=== PATIENT | female | born 1985 | race Caucasian/White ===

== ENCOUNTER 2020-04-24 02:13 | Outpatient (CLI) | payer BC, SELFPAY ==
--- NOTE | 2020-04-24 13:15 | DI.MAMMO_ITS ---
EXAM: MG MAMMO DIAGNOSTIC BI CLINICAL HISTORY: Left breast tenderness. TECHNIQUE: Craniocaudal and mediolateral oblique Full Field Digital Mammography views with Computer Aided Diagnosis followed by Tomosynthesis. COMPARISON: No exams were available for comparison FINDINGS: Mammography/Tomosynthesis: Masses/Architectural Distortion: No suspicious nodules are seen. Microcalcifictions: No suspicious pleomorphic-type are seen. Skin Thickening/Nipple Retraction: None. IMPRESSION: 1. No evidence of malignancy is noted. 2. Unless there is more urgent need, follow-up screening mammography is recommended, as per [place] [employer] guidelines. 3. The findings were discussed with the patient on the date of the examination. BI-RADS Category 1 - Negative Breast Density - Category C - Heterogeneously dense The mammogram demonstrates the patient's breast tissue is dense. Dense breast tissue is very common a nd is not abnormal but dense breast tissue can make it harder to find cancer on a mammogram. Also, de nse breast tissue may increase their breast cancer risk. This information about the [facility] of [facility] was provided to the patient to raise their awareness. Use this report when you speak wi th the patient about their risks for breast cancer, which includes their family history. At that time , you may recommend for more screening tests (Ultrasound or MRI) as they might be useful based on the ir risk. A negative radiographic report should not delay biopsy if a dominant or clinically suspicious mass is present. Up to ten percent of cancers are not identified on mammography. A negative report may reinforce clinical impression. Adenosis and dense breasts may obscure an underlying neoplasm. False positive reports average 6 to 10%. Patient will receive a letter notifying them of these results.
== END 2020-04-24 02:33 ==
PROVIDERS: Visit Provider Obstetrics & Gynecology
DX: N64.4 Mastodynia (principal)
CPT/HCPCS: 77062; 77066; G0279

== ENCOUNTER 2021-01-30 02:03 | Outpatient (CLI) | payer BC, SELFPAY ==
[2021-01-30 16:26] LABS: Kit/Specimen SENT
[2021-01-30 16:45] LABS: *AMPHETAMINES SCREEN URINE Negative (Negative); *BARBITURATES SCREEN URINE Negative (Negative); *BENZODIAZEPINES SCREEN URINE Negative (Negative); Cannabinoids THC Negative (Negative); Cocaine Screen,Urine Negative (Negative); METHADONE URINE SCREEN Negative (Negative); OPIATES URINE SCREEN Negative (Negative)
[2021-01-30 16:46] LABS: Abs Immature Grans 0.03 10^3/uL (0.0-0.06); Absolute Basophil Count 0.04 10^3/uL (0.0-0.2); Absolute Eosinophil Count 0.14 10^3/uL (0.0-0.7); Absolute Lymphocyte Count 2.44 10^3/uL (1.2-3.4); Absolute Monocyte Count 0.76 10^3/uL (0.1-0.8); Absolute Neutrophil Count 6.85 10^3/uL (1.2-6.7); Basophils % 0.4; Eosinophils % 1.4; HGB 13.2 g/dL (11.2-15.7); Immature Grans % 0.3; Lymphocytes % 23.8; MCH 30.6 pg (27.0-33.0); MCHC 33.8 % (32.0-36.0); MCV 90.5 fL (80-95); MPV 10.9 fL (8.0-11.0); Monocytes % 7.4; Neutrophils % 66.7; Nucleated RBC 0 %; Platelet Count 292 10^3/uL (130-400); RBC 4.31 10^6/uL (3.93-5.22); RDW 12.3 % (11.7-14.6); RDW-SD 40.7 fL; WBC 10.26 10^3/uL (4.4-10.8)
[2021-01-30 16:47] LABS: Tricyclic Antidepressants Negative (Negative)
[2021-01-30 17:31] LABS: TSH (W/Ref FT4) 0.76 uIU/mL (0.36-3.74)
[2021-01-31 16:09] LABS: Chlamydia Result Negative (Negative); GC Result Negative (Negative)
[2021-02-02 11:31] LABS: Syphilis Total Ab w/Reflex Nonreactive (Nonreactive)
[2021-02-03 09:03] LABS: Hepatitis B Surface Ag Negative (Negative)
[2021-02-03 09:38] LABS: Hepatitis C Ab w Rflx HCV PCR Negative (Negative)
[2021-02-03 09:46] LABS: HIV-1/2 Ag & Ab Screen Negative (Negative)
[2021-02-03 10:16] LABS: Varicella IgG Antibody Positive (See Note)
[2021-02-03 10:21] LABS: Rubella IgG Ab (UVM) Positive (See Note)
[2021-02-05 12:28] LABS: Buprenorphine Negative ng/mL (Cutoff: 5.0); Norbuprenorphine Negative ng/mL (Cutoff: 2.5)
[2021-02-05 18:43] LABS: Specimen WB Whole Blood
== END 2021-01-30 02:04 | disposition home or self-care (01) ==
LOC: LBO 02:03
PROVIDERS: PCP Nurse Practitioner Family; Visit Provider Advanced Practice Midwife
DX: Z34.91 Encounter for supervision of normal pregnancy, unspecified, first trimester (principal); Z11.3 Encounter for screening for infections with a predominantly sexual mode of transmission; Z11.4 Encounter for screening for human immunodeficiency virus [HIV]; Z11.59 Encounter for screening for other viral diseases; Z01.84 Encounter for antibody response examination
CPT/HCPCS: 36415; 80307; 81329; 86787; 86803; 86850; 86900; 86901; 87340; 87389; 87491; 87591; 84443; 85025; 86762; 86780; 87086

== ENCOUNTER 2021-02-12 03:06 | Outpatient (CLI) | payer BC, SELFPAY ==
[2021-02-12 09:16] LABS: Glucose,1 Hr (Glucola) 113 mg/dL (80-140)
== END 2021-02-12 03:07 | disposition home or self-care (01) ==
LOC: LBO 03:06
PROVIDERS: PCP Nurse Practitioner Family; Visit Provider Advanced Practice Midwife
DX: Z34.91 Encounter for supervision of normal pregnancy, unspecified, first trimester (principal)
CPT/HCPCS: 36415; 82950

== ENCOUNTER 2021-05-20 03:39 | Outpatient (CLI) | payer BC, SELFPAY ==
[2021-05-20 09:46] LABS: Abs Immature Grans 0.08 10^3/uL (0.0-0.06); Absolute Basophil Count 0.03 10^3/uL (0.0-0.2); Absolute Eosinophil Count 0.09 10^3/uL (0.0-0.7); Absolute Lymphocyte Count 1.31 10^3/uL (1.2-3.4); Absolute Monocyte Count 0.48 10^3/uL (0.1-0.8); Absolute Neutrophil Count 6.38 10^3/uL (1.2-6.7); Basophils % 0.4; Eosinophils % 1.1; HCT 32.4 % (36.0-46.0); HGB 10.2 g/dL (11.2-15.7); Lymphocytes % 15.7; MCH 28.3 pg (27.0-33.0); MCHC 31.5 % (32.0-36.0); MPV 10.2 fL (8.0-11.0); Monocytes % 5.7; Neutrophils % 76.1; Nucleated RBC 0 %; Platelet Count 258 10^3/uL (130-400); RDW 12.4 % (11.7-14.6); RDW-SD 41.1 fL; WBC 8.37 10^3/uL (4.4-10.8)
[2021-05-20 10:02] LABS: Glucose,1 Hr (Glucola) 149 mg/dL (80-140)
== END 2021-05-20 03:40 | disposition home or self-care (01) ==
LOC: LBO 03:39
PROVIDERS: PCP Nurse Practitioner Family; Visit Provider Obstetrics & Gynecology
DX: O09.523 Supervision of elderly multigravida, third trimester (principal); Z3A.28 28 weeks gestation of pregnancy
CPT/HCPCS: 36415; 82950; 85025

== ENCOUNTER 2021-05-21 08:47 | Outpatient (CLI) | payer BC, SELFPAY ==
[2021-05-21 13:24] LABS: Glucose 1 Hour 142 mg/dL
[2021-05-21 15:22] LABS: Glucose 3 Hour 121 mg/dL
== END 2021-05-21 08:48 | disposition home or self-care (01) ==
LOC: LBO 08:51
PROVIDERS: PCP Nurse Practitioner Family; Visit Provider Obstetrics & Gynecology
DX: O99.810 Abnormal glucose complicating pregnancy (principal); Z3A.28 28 weeks gestation of pregnancy
CPT/HCPCS: 36415; 82951

== ENCOUNTER 2021-07-15 16:49 | Outpatient (REF) | payer BC, SELFPAY ==
[2021-07-15 17:56] LABS: *AMPHETAMINES SCREEN URINE Negative (Negative); *BARBITURATES SCREEN URINE Negative (Negative); *BENZODIAZEPINES SCREEN URINE Negative (Negative); Cannabinoids THC Negative (Negative); Cocaine Screen,Urine Negative (Negative); METHADONE URINE SCREEN Negative (Negative); OPIATES URINE SCREEN Negative (Negative)
[2021-07-15 17:57] LABS: Tricyclic Antidepressants Negative (Negative)
== END 2021-07-15 16:50 | disposition home or self-care (01) ==
LOC: NCHCN 16:49
PROVIDERS: PCP Nurse Practitioner Family; Visit Provider Obstetrics & Gynecology
DX: Z34.83 Encounter for supervision of other normal pregnancy, third trimester (principal); Z3A.35 35 weeks gestation of pregnancy
CPT/HCPCS: 80307; 87081

== ENCOUNTER 2021-07-22 02:47 | Outpatient (RCR) | payer BC, SELFPAY ==
[2021-07-17] MEDS: IRON SUCROSE COMPLEX 200 MG in Normal Saline 100 ML 440 MG IVPB (11:20)
[2021-07-17] MEDS: Normal Saline Flush 10 ML SYR IVP (11:21)
[2021-07-22 14:21] LABS: HGB 11.5 g/dL (11.2-15.7)
== END 2021-07-24 23:59 | disposition home or self-care (01) ==
LOC: INF 02:47
PROVIDERS: PCP Nurse Practitioner Family; Visit Provider Obstetrics & Gynecology
DX: D64.9 Anemia, unspecified (principal); O99.013 Anemia complicating pregnancy, third trimester
CPT/HCPCS: 36415; 96365; 85018; J1756

== ENCOUNTER 2021-07-24 02:08 | Inpatient (IN) | payer BC, SELFPAY ==
[2021-07-24] VITALS (13 sets, daily range): BP systolic 92–107; BP diastolic 53–75; PULSE 66–116; RESP 16–18; TEMP 36.7–36.8; O2SAT 97–100; BMI 25.0
--- NOTE | 2021-07-24 03:15 | HPE_ITS ---
Date of service: 07/24/21 Time of Service: 03:25 Assessment and Plan Assessment and plan (1) Anemia affecting : Status: Acute Qualifiers: Trimester: third trimester Qualified Code(s): O99.013 - Anemia complicating , third trimester (2) Declines (vaginal after ) trial: Status: Acute (3) Active labor at term: Status: Acute (4) GBS (group B Streptococcus carrier), +RV culture, currently : Status: Acute OB-HPI Labor/Delivery History of Present Illness Reason for Visit: Ule Out Labor Chief Complaint: Uterine Contractions; Suspected Labor. MOHAN Calculator Estimated Delivery Date Method Current WG Current Estimate 08/08/21 Ultrasound #1 37w 6d Other Estimates 08/15/21 LMP (Uncertain) 36w 6d History of Present Expected Delivery Route/Plan Sched'ed C/S (#3) - FOB/ - Niko JAIMES Specific Issues/Plan 1. AMA; pt desires [place] screening and level 2 sono, genetics and MFM consult @ [facility] at 18-20 wks: Nl result 1b. Known CF screen negative, SMA carrier screen is negative, Normal [place] results 1d. Son Ronald has autism, Dx shortly after receiving childhood vaccination. Pt declines COVID vaccine. 06/06/21. Counseled again. Declines Covid vaccine. 3. Hx GDM x1 and macrosomia x2, early glucola 119 4. Considering TL, at time of repeat c/s. Review of Systems All systems reviewed & are unremarkable except as noted in HPI and below Constitutional Comments: Feels improved energy since iron transfusion approximately week ago Genitourinary Comments: Contractions beginning at 0100 brownish vaginal discharge. No bright red blood no gush of fluid [facility] Medical History (Updated 07/24/21 @ 03:25 by Iris Pena MD) Abscess of Bartholin's gland R sided. I+D 09/20/13. + Staph Aureus. Bartholin's gland abscess (09/23/17) R sided. I&D 09/20/17. Breast tenderness Depression Eczema Elevated glucose level 3hr 2nd trimester GTT elevated. Monitoring CBGs Elevated glucose tolerance test Encounter for supervision of normal , unspecified, second trimester Gastroesophageal reflux disease Glucose intolerance of (07/21/17) 11/2017: 28w Glucola elevated. 3hr GTT fasting 95. Refer to senior net programmer. Fetus > 90% tile on serial u/s 3rd trimester. 01/11/18 EFW 99%tile on OB u/s. Melanocytic nevi of scalp and neck (08/29/14) Migraine with aura acute exacerbation of headache sx in 08/2010 with 2hr episode of confusion and difficulty communicating followed by severe migrane. w/u with MRI showing ? white matter changes but no CVA. Rx with Maxalt and Amitriptyline. 08/24/13 recurrent sx of migrane with aura 11w EGA. Nonspecific abnormal findings on skull or head x-ray or scan 2003 MRA - neg /MRI -T2 image 8x9mm lesion R lateral ventricle. 2009 MRA nl [place]. MRI Nonspecific white matter changes periventricular region. Possible lesion in R maninder ? demylelinating process. -induced glucose intolerance 2nd . Diet controlled. Surgical History (Updated 07/24/21 @ 03:24 by Iris Pena MD) Appendectomy 2011 at [facility] section (03/15/14) 03/15/14 LTCS for arrest of descent. M. 9lb2oz. Apgars 9/10. IOL at 41w. Bertha and [place]. pushed for 3hrs. Stanley 01/20/18 RLTCS Tyrese Kaufman. 9lb1oz. Active labor, declined . Family History Mother No problems noted. Father No problems noted. Sister Fibromyalgia Mental disorder Anxiety depresssion Sister Mental disorder Anxiety, Depression Asthma Brother Asthma Brother No problems noted. Social History Smoking/Tobacco Use Status: Never Smoking risk assessment performed?: Yes Drug use: Never Household members: spouse, children and other Details: H-Niko, sons-Mandeep Angel Number of Children: 2 current occupation: Grade schoolteacher, waitresses for additional income. Niko [id number] Do you feel safe in your relationship?: Yes Female Reproductive History Menstrual control method: pills History History 3 Para 2 Hx # Term Pregnancies 2 Multiple births 0 Hx # Pregnancies 0 Ectopic pregnancies 0 AB induced 0 Hx Number of Living Children 2 AB spontaneous 0 Past Pregnancies Del. Date GA/Weeks # Outcome Route Wgt Sex Labor Lgth Anesthes ia Location Prov Complic 03/15/14 42 No Successful 9 lb 2 oz Male 48 hrs regional [facility] - Dr. Pena 01/20/18 38 No Successful 9 lb 1 oz Male spont l abor, planned repeat C/S once dilated to 3 cm regional [facility] - Dr. Tobin Delivery Date: 03/15/14 IOL for post dates, tried for 2 days, dilated to 9 or so, pushed anyway for 3 hrs, then C/S Carmen Parks Delivery Date: 01/20/18 Planned repeat C/S but went into labor early Carmen Burden Meds Allergies and Home Medications Allergies Allergy/AdvReac Type Severity Reaction Status Date / Time No Known Allergies Allergy Unverified 07/22/21 15:06 Home Medications Medication Instructions Recorded Confirmed Type multivitamin 1 tab PO DAILY 01/16/21 07/24/21 History ferrous sulfate 325 mg (65 mg 325 mg PO BID 180 Days #360 tab 05/20/21 07/24/21 Rx iron) tablet,delayed release Exam Physical Exam Vital signs: Temp Pulse Resp BP Pulse Ox 98.1 F 116 H 16 107/75 99 07/24/21 02:59 07/24/21 03:03 07/24/21 02:59 07/24/21 03:03 07/24/21 02:59 Vital Signs Reviewed: Yes Narrative: Onset of painful regular contractions began at 1:00 this morning. Constitutional Constitutional: mild distress (Reacting with contractions) Detailed Labor and Delivery Exam Dilation: 1 Effacement (%): 90 station: -1 Position: OA Cervix position: mid Consistency: soft Doherty Score: Cervical Points Exam 0 1 2 3 Dilation Closed 1-2cm 3-4 cm 5-6cm Effacement 0-30% 40-50% 60-70% 80% Consistency Firm Medium Soft Station -3 -2 -1,0 +1,+2 Position Posterior Mid Anterior DOHERTY Score(Cervical Ripeness Score): 8 Amniotic Membrane Status: Intact Monitor Mode: External Contraction Frequency(min): 2-3 Contraction Duration(sec): 40 Contraction Intensity: Mild/Moderate Fetus A Heart Rate Baseline: 150 Monitor Accelerations: 15 X 15 Monitor Decelerations: None Variability: Moderate (6-25 BPM) Presentation: Cephalic Categories: Category I Est. Weight: 3800 lb Assessment Note: Membranes intact. heart rate tracing category 1. HEENT Exam HEENT Exam: Not Done Neck Exam Neck Exam: Normal Chest/Brest/Axilla Exam Chest Exam: Not Done Breast Exam Breast Exam: Not Done Respiratory Exam Respiratory Exam: Normal Cardiovascular Exam Cardiovascular Exam: Normal Abdominal Exam Abdominal Exam: Normal Rectal Exam Rectal Exam: Not Done Exam Exam: Normal Extremities Exam Extremities Exam: Normal Back/Spine/Pelvis Exam Back Exam: Normal Pelvis Adequate: Yes Skin Exam Skin Exam: Normal (Multiple 3 mm rounded discolorations on back) Neurological Exam Neurological Exam: Normal Psychiatric Exam Psychiatric Exam: Normal Results Results Group Beta Strep: Positive Blood Type: A+ Rubella Status: Immune Varicella Immunity: Immune Risk Assessment Risk for Shoulder Dystocia Historical/Initial OB: POSITIVE FOR: Previous Macrosomia; NEGATIVE FOR: Pelvic Abnormality, Pre- BMI>30 or Previous Shoulder Dystocia Delivery Plan @ 36wks: planned repeat C/S Risk for Pre-Eclampsia Yes, if one or more: NEGATIVE FOR: Hx Pre-E/Gest HTN, Chronic HTN, Multiple Gestation, Pre-gestational DM, Renal Disease, Systemic Lupus or APA Syndrome Yes, if 2 or more: POSITIVE FOR: Age>= 35 yrs; NEGATIVE FOR: Nulliparity, >10yr btwn pregnancies, BMI>30, ethinicty, Mother/Sister w/ Pre-E or Previous IUGR Risk for Post- Hemorrhage Initial: NEGATIVE FOR: Multiple Gestation, Previous PPH, Known Clotting Deficiency, Grand Multiparity or Anticoagulation Risks Reviewed Risks Reviewed Upon Admission: Yes
[2021-07-24] MEDS: ceFAZolin 2 GM/50 ML BAG IVPB (03:30)
[2021-07-24] MEDS: Sodium Citrate 30 ML CUP PO (03:30)
[2021-07-24] MEDS: Lactated Ringers 1,000 ML 200 ML IV (03:30)
--- NOTE | 2021-07-24 03:32 | W.ANESPRE ---
General Info Date of Service Date Performed: 07/24/21 Height: 5 ft 4 in Weight: 66.224 kg Body Mass Index (BMI): 25.0 Surgical Procedure: Operation Date: 07/24/21 03:30 Proposed Procedures Side Surgeon p Section Not Applicable Iris Pena MD Meds Allergies and Home Medications Allergies Allergy/AdvReac Type Severity Reaction Status Date / Time No Known Allergies Allergy Unverified 07/22/21 15:06 Home Medication Medication Instructions Recorded multivitamin 1 tab PO DAILY 01/16/21 ferrous sulfate 325 mg (65 mg 325 mg PO BID 180 Days #360 tab 05/20/21 iron) tablet,delayed release Current Visit Medications: Current Medications Generic Name Dose Route Start Last Admin Trade Name Freq PRN Reason Stop Dose Admin Citric Acid/Sodium Citrate 30 ml 07/24/21 04:00 07/24/21 03:30 Sodium Citrate 30 Ml Cup PO 30 ml PREOP FRANCO Administration Ringer's Solution 1,000 mls @ 200 mls/hr 07/24/21 03:15 07/24/21 03:30 IV 200 mls/hr INFUSION FRANCO Administration Cefazolin Sodium/Dextrose 2 gm in 50 mls @ 100 mls/hr 07/24/21 03:15 07/24/21 03:30 Ancef Duplex IVPB 100 mls/hr PREOP FRANCO Administration Azithromycin 500 mg/ Sodium 250 mls @ 250 mls/hr 07/24/21 03:15 Chloride IVPB PREOP FRANCO Sodium Chloride 500 mls @ 0 mls/hr 07/24/21 03:12 Saline 500ml Bag IV PRN PRN As Directed IV Miscellaneous Supplies 1 each 07/24/21 03:15 Iv Access IV DIRECTED FRANCO Sodium Chloride 0 ml 07/24/21 03:12 Normal Saline Flush 10 Ml Syr IVP PRN PRN PFSH Active Problems Active Problems: Problem Status Onset Code GBS (group B Streptococcus carrier), +RV culture, currently O99.820 Active labor at term Declines (vaginal after ) trial O34.219 support offered Anemia affecting O99.019 Elevated glucose tolerance test R73.09 Encounter for supervision of normal , unspecified, second trimester Z34.92 Z34.90 Tinea versicolor 01/05/18 B36.0 PTSD (post-traumatic stress disorder) 08/29/14 F43.10 Migraine with aura and without status migrainosus, not intractable 09/30/15 G43.109 Medical History Medical History (Updated 07/24/21 @ 03:25 by Iris Pena MD) Abscess of Bartholin's gland R sided. I+D 09/20/13. + Staph Aureus. Bartholin's gland abscess (09/23/17) R sided. I&D 09/20/17. Breast tenderness Depression Eczema Elevated glucose level 3hr 2nd trimester GTT elevated. Monitoring CBGs Elevated glucose tolerance test Encounter for supervision of normal , unspecified, second trimester Gastroesophageal reflux disease Glucose intolerance of (07/21/17) 11/2017: 28w Glucola elevated. 3hr GTT fasting 95. Refer to brush maker machine. Fetus > 90% tile on serial u/s 3rd trimester. 01/11/18 EFW 99%tile on OB u/s. Melanocytic nevi of scalp and neck (08/29/14) Migraine with aura acute exacerbation of headache sx in 08/2010 with 2hr episode of confusion and difficulty communicating followed by severe migrane. w/u with MRI showing ? white matter changes but no CVA. Rx with Maxalt and Amitriptyline. 08/24/13 recurrent sx of migrane with aura 11w EGA. Nonspecific abnormal findings on skull or head x-ray or scan 2003 MRA - neg /MRI -T2 image 8x9mm lesion R lateral ventricle. 2009 MRA nl [place]. MRI Nonspecific white matter changes periventricular region. Possible lesion in R maninder ? demylelinating process. -induced glucose intolerance 2nd . Diet controlled. Surgical History Surgical History (Updated 07/24/21 @ 03:24 by Iris Pena MD) Appendectomy 2011 at [facility] section (03/15/14) 03/15/14 LTCS for arrest of descent. M. 9lb2oz. Apgars 9/10. IOL at 41w. [place] [employer] [place]. pushed for 3hrs. Stanley 01/20/18 RLTCS Tyrese Kaufman. 9lb1oz. Active labor, declined . Tobacco Smoking/Tobacco Use Status: Never Substance Use Substance use: Never Prental History History 3 Para 2 Hx # Term Pregnancies 2 Multiple births 0 Hx # Pregnancies 0 Ectopic pregnancies 0 AB induced 0 Hx Number of Living Children 2 AB spontaneous 0 Past Pregnancies Del. Date GA/Weeks # Outcome Route Wgt Sex Labor Lgth Anesthesia Location Prov [facility] 03/15/14 42 No Successful 4139.03 g Male 48 hrs regional [facility] Pena 01/20/18 38 No Successful 4110.681 g Male spont labor, planned repeat C/S once dilated to 3 cm regional [facility] Georgi Tobin Delivery Date: 03/15/14 IOL for post dates, tried for 2 days, dilated to 9 or so, pushed anyway for 3 hrs, then C/S Carmen Parks Delivery Date: 01/20/18 Planned repeat C/S but went into labor early Carmen Burden Vital Signs and Lab Results Vital Signs Most Recent Vital Signs in EMR: Most Recent Vital Signs Temp Pulse Resp BP Pulse Ox 36.7 C 116 H 16 107/75 99 07/24/21 02:59 07/24/21 03:03 07/24/21 02:59 07/24/21 03:03 07/24/21 02:59 Lab Results Result Diagrams: 07/24/21 Unknown Blood Type / Crossmatch: No Data to Display Complete Blood Count: Hemoglobin 11.5 g/dL (11.2-15.7) 07/22/21 14:03 07/22/21 Complete Metabolic Panel: No Data to Display Liver Function Panel: No Data to Display Coagulation Panel: No Data to Display Cardiac Panel: No Data to Display Arterial Blood Gas: No Data to Display Venous Blood Gas: No Data to Display Pancreas Panel: No Data to Display Thyroid Panel: No Data to Display Infectious Disease: Coronavirus (COVID-19)(PCR) Pending 07/24/21 03:25 07/24/21 Coronavirus 2019 Source Pending 07/24/21 03:25 07/24/21 Blood Cultures: No Data to Display Toxicology Panel: Urine Amphetamines Screen Negative (Negative) 07/15/21 17:11 07/15/21 Urine Benzodiazepines Screen Negative (Negative) 07/15/21 17:11 07/15/21 Urine Barbiturates Screen Negative (Negative) 07/15/21 17:11 07/15/21 Urine Cocaine Screen Negative (Negative) 07/15/21 17:11 07/15/21 Urine Methadone Screen Negative (Negative) 07/15/21 17:11 07/15/21 Urine Opiates Screen Negative (Negative) 07/15/21 17:11 07/15/21 Ur Tricyclic Antidepressants Screen Negative (Negative) 07/15/21 17:11 07/15/21 Ur Tetrahydrocannabinol (THC) Scrn Negative (Negative) 07/15/21 17:11 07/15/21 Panel: No Data to Display Anesthesia Assessment and Plan Anesthesia History Personal History: No History of Anesthesia Complications Family History: No Family History of Anesthesia Complications Exercise Tolerance Exercise Tolerance: Metabolic Equivalents>4 Cardiac & Pulmonary Exam Cardiac Exam: Normal S1/S2 Heart Sounds Pulmonary Exam: Clear Bilateral Breath Sounds Airway Exam Known Difficult Airway: No Mallampati Class: 1 Mouth Opening: Normal (> 3cm) Thyromental Distance: Greater than 3 cm Neck Range of Motion: Full ROM Neck Circumference: Normal Teeth Condition: Normal Dentition ASA Classification ASA Score: ASA 2 Emergency Case?: Yes NPO Status NPO Status: Full Stomach Status Status: Other Anesthesia Plan Resuscitation Status: Full Code Anesthesia Technique: Spinal Anesthesia Airway Planned: Natural Airway Pain Management: Intrathecal Analgesia Monitors Used: Standard Monitors Preoperative Comments:: 36 yo female for in labor for repeat c section, has had 2 previous sections.
[2021-07-24 03:34] LABS: Source Nasal/Nares
[2021-07-24 03:39] LABS: HCT 35.3 % (36.0-46.0); HGB 11.3 g/dL (11.2-15.7); MCH 27.4 pg (27.0-33.0); MCV 85.7 fL (80-95); MPV 11.4 fL (8.0-11.0); Platelet Count 195 10^3/uL (130-400); RBC 4.12 10^6/uL (3.93-5.22); WBC 9.29 10^3/uL (4.4-10.8)
[2021-07-24] MEDS: AZITHROMYCIN 500 MG in Normal Saline 250 ML 250 MG IVPB (04:07)
[2021-07-24 04:26] LABS: COVID-19 PCR Negative (Negative)
--- NOTE | 2021-07-24 04:43 | FALL_PTH ---
PATIENT: Ana Bond LOC: OBS U#:[id number] AGE/SX: 36/F ROOM: OBS.305 RE07/24/[address]: Iris Pena : 1985 BED: A DIS: 07/27/2021 SPEC #: [id number] RECD: 07/24/21 12:46 STATUS: TERRI REQ #: [id number] NOMAN: 07/24/21 04:[address]: Iris Pena DEPT: Surgical Specimen RECD BY: Nury Villanueva ENTERED: 07/24/21 12:47 SP TYPE: Fall OTHR DR: Medina Orantes Tissues: 1 - FALLOPIAN TUBE (STERILIZATION) 2 - FALLOPIAN TUBE (STERILIZATION) Procedures: GROSS AND MICRO LEVEL 2 Comments: [id number]
--- NOTE | 2021-07-24 05:32 | W.PM.OBCSECT ---
Date of service: 07/24/21 Time of Service: 05:32 Operative Note Operative Note Delivery Method: Unscheduled STAT: No and Repeat Previous LT Incision: Yes DATE OF PROCEDURE: 07/24/21 PRE-OP DIAGNOSES: 1. Unscheduled repeat delivery at 37 W3D EGA. Multiparity desire POST-OP DIAGNOSES: same PROCEDURE: Low transverse delivery and bilateral salpingectomy SURGEON: Iris Pena Assisting Surgeon: Antoinette Larose Anesthesia: spinal Estimated blood loss (mL): 1,000 Pathology: other (Bilateral fallopian tubes to pathology) Complications: None Patient was transported to: floor Patient's condition: stable Indications: 36-year-old G3 now P3 female who previously had planned a repeat delivery and tubal sterilization at 39 weeks estimated stational age. She developed regular painful uterine cramping and dark brown discharge early in the morning of 07/24/2021. At the time of presentation to the center she is 1 cm dilated 90% effaced, amniotic sac intact. heart rate category 1. Because of the progression of cervical change from previous exams the decision was made to proceed with a repeat delivery and tubal sterilization per patient request. Findings: Viable female infant in the L OA position clear amniotic fluid weight is currently pending. Uterus normal in appearance adhesion of the omentum to the posterior uterine serosa. Normal fallopian tubes and ovaries. Procedure Description: Patient was taken to the operating room she is placed in the sitting position and spinal anesthesia was administered without difficulty. She was then placed in the dorsal supine position with a leftward tilt. SCDs and a Stone catheter to gravity drainage were in place. A vaginal prep with Betadine was performed and the patient was prepped and draped in the usual sterile fashion.Surgical timeout was performed. After a adequate level of anesthesia was achieved a Pfannenstiel skin incision was made approximately 2 cm superior to the pubic symphysis using a scalpel and the underlying subcutaneous tissue dissected using Bovie electrocautery to the level of the rectus fascia. The rectus fascia was then nicked in the midline and the fascial incision extended laterally using curved Navarrete scissors. 2 Norma clamps were applied to the inferior rectus fascia and the rectus fascia was dissected off of the underlying rectus muscles using Bovie electrocautery and blunt technique. A similar technique was carried out on the superior rectus fascia. Rectus muscles were then in the midline and the peritoneum entered bluntly. The peritoneal incision was extended laterally using blunt technique. The vesicle-uterine peritoneum over lower uterine segment was incised with curved Navarrete scissors and the bladder flap created bluntly. Scalpel was used to incise the lower uterine segment in a transverse fashion. The uterine incision was extended bluntly and the amniotic sac was ruptured with clear amniotic fluid noted. A single gloved hand was placed into the uterine cavity and the head was successfully delivered through the uterine incision followed by the trunk and extremities with the assistance of fundal pressure. The cord was doubly clamped and cut and the handed off to the waiting pediatric team. Cord blood was and the placenta was extracted with a combination of fundal massage and gentle cord traction. The uterus was exteriorized cleared of all clots and debris and the uterine incision reapproximated with a running lock suture of 0 Vicryl followed by a second imbricating suture of 0 Vicryl. There was a 3 cm hematoma at the left lateral inferior aspect of the uterine incision. It was oversewn with a [id number] suture of 0 Vicryl and was noted be hemostatic and.. The uterus was returned to the abdomen and the paracolic gutters cleared of all clots and debris. Uterine incision and the along with the bladder flap and the abdominal wall were all inspected and noted to be hemostatic. Peritoneum was reapproximated with a running suture of 2-0 Vicryl. The rectus fascia was reapproximated with a running suture of 0 Vicryl. space within the subcutaneous tissue closed with a running suture of 2-0 Vicryl. The skin incision was reapproximated with a subcuticular closure of 4-0 Monocryl. Skin incision is and sealed with skin glue. The uterus was massaged for any remaining clots and debris's. The patient was transported to recovery area in stable condition. All sponge, lap, and needle counts correct x2. Gender: Female
--- NOTE | 2021-07-24 07:05 | W.ANESPOSTOP ---
Postoperative Evaluation Date, Time and Location Date Performed: 07/24/21 Time Performed: 07:07 Patient Location: Obstetrics Vital Signs Most Recent Imported Vital Signs: Most Recent Vital Signs Temp Pulse Resp BP Pulse Ox 36.7 C 77 16 97/67 L 99 07/24/21 05:35 07/24/21 06:37 07/24/21 02:59 07/24/21 06:37 07/24/21 02:59 Pain Score Most Recent Pain Score: Most Recent Pain Score Pain Level 2 07/24/21 02:59 Assessment Mental Status: Awake (Alert & Oriented to Patient Baseline) Airway and Respiratory Function: Patent airway with normal (patient baseline) respiratory exam Cardiovascular Function: Hemodynamically Stable Hydration Status: Adequately Hydrated Nausea & Vomiting: No Nausea or Vomiting Pain: Pt. Denies Any Pain Peripheral Nerve Block: Patient did not receive a nerve block
[2021-07-24] MEDS: Lactated Ringers 1,000 ML 125 ML IV (07:25)
[2021-07-24] MEDS: Acetaminophen 325 MG TAB 650 MG PO ×2 (07:43→19:42)
[2021-07-24] MEDS: Ketorolac 30 MG/ML VIAL IVP ×3 (10:10→22:27)
[2021-07-24] MEDS: Docusate Sodium 100 MG CAP PO (19:42)
[2021-07-24] MEDS: Normal Saline Flush 10 ML SYR IVP (22:27)
[2021-07-25 00:10] VITALS: BP 99/69; PULSE 86; RESP 18; TEMP 37.2
[2021-07-25] MEDS: Ketorolac 30 MG/ML VIAL IVP (04:31)
[2021-07-25] MEDS: Normal Saline Flush 10 ML SYR IVP (04:31)
[2021-07-25 07:11] LABS: Abs Immature Grans 0.04 10^3/uL (0.0-0.06); Absolute Basophil Count 0.03 10^3/uL (0.0-0.2); Absolute Eosinophil Count 0.09 10^3/uL (0.0-0.7); Absolute Lymphocyte Count 1.23 10^3/uL (1.2-3.4); Absolute Monocyte Count 0.52 10^3/uL (0.1-0.8); Absolute Neutrophil Count 6.27 10^3/uL (1.2-6.7); Basophils % 0.4; Eosinophils % 1.1; Immature Grans % 0.5; MCH 27.2 pg (27.0-33.0); MCHC 31.3 % (32.0-36.0); MCV 87.2 fL (80-95); MPV 11.6 fL (8.0-11.0); Monocytes % 6.4; Neutrophils % 76.6; Nucleated RBC 0 %; Platelet Count 157 10^3/uL (130-400); RBC 3.67 10^6/uL (3.93-5.22); RDW 16.8 % (11.7-14.6); WBC 8.18 10^3/uL (4.4-10.8)
--- NOTE | 2021-07-25 08:13 | OBPPV_ITS ---
Date of service: 07/25/21 Time of Service: 08:13 Assessment and Plan Assessment and plan (1) Status post repeat low transverse section: Status: Acute Assessment and plan: Patient seen and examined today. Doing well. Breast-feeding without difficulty. She has been up and ambulating. She has appropriate incisional tenderness. We will continue routine postop care. Anticipate discharge 24 to 48 hours based on patient's preference and . Subjective Subjective Patient comments: Incisional pain, Tolerating diet and Flatus present [place] baby status: Doing well, Nursing well and Strong Bonding Observed feeding status: Exclusively breast feeding Exam Physical Exam Vital signs: Temp Pulse Resp BP Pulse Ox 98.9 F 86 18 99/69 L 97 07/25/21 00:10 07/25/21 00:10 07/25/21 00:10 07/25/21 00:10 07/24/21 16:15 HEENT Exam HEENT Exam: Normal Respiratory Exam Respiratory Exam: Normal Cardiovascular Exam Cardiovascular Exam: Normal Abdominal Exam Abdomen: Tender Extremities Exam Extremity Exam: Normal; negative Calf Tenderness Psychiatric Exam Psychiatric Exam: Normal Results Hemoglobin/Hematocrit: Hgb 10.0 g/dL (11.2-15.7) L 07/25/21 06:36 Hct 32.0 % (36.0-46.0) L 07/25/21 06:36 Abnormal Lab Findings: Abnormal Labs 07/24/21 07/25/21 03:27 06:36 RBC 3.67 L Hgb 10.0 L Hct 35.3 L 32.0 L MCHC 31.3 L RDW 16.0 H 16.8 H MPV 11.4 H 11.6 H
[2021-07-25 08:30] VITALS: BP 101/68; PULSE 78; RESP 18; TEMP 36.6; O2SAT 99
[2021-07-25] MEDS: Docusate Sodium 100 MG CAP PO ×2 (08:47→21:17)
[2021-07-25] MEDS: Acetaminophen 325 MG TAB 650 MG PO ×4 (08:48→21:17)
[2021-07-25] MEDS: Ibuprofen 600 MG TAB PO ×3 (09:26→21:17)
[2021-07-25 15:33] VITALS: BP 96/51; PULSE 78; RESP 20; TEMP 36.6; O2SAT 98
[2021-07-26 00:20] VITALS: BP 106/68; PULSE 92; RESP 16; TEMP 36.6; O2SAT 97
[2021-07-26] MEDS: Acetaminophen 325 MG TAB 650 MG PO ×5 (01:36→23:29)
[2021-07-26] MEDS: Ibuprofen 600 MG TAB PO ×4 (03:31→22:03)
[2021-07-26] MEDS: Docusate Sodium 100 MG CAP PO ×2 (07:32→23:29)
[2021-07-26 09:45] VITALS: BP 99/60; PULSE 74; RESP 16; TEMP 36.9; O2SAT 97
[2021-07-26 13:29] VITALS: BP 98/62; PULSE 82; RESP 18; O2SAT 98
--- NOTE | 2021-07-26 15:05 | W.PM.OBPNV1 ---
Date of service: 07/26/21 Time of Service: 15:05 Assessment and Plan Assessment and plan (1) Status post repeat low transverse section: Status: Acute Assessment and plan: POD#2 s/p RCS and BTL, doing well. No significant concerns. Routine care. Plans d/c home tomorrow. Subjective Subjective Patient comments: Pain well controlled, Tolerating diet and Flatus present; no Bowel Movement [place] baby status: Doing well, Nursing well (nursing ok, working with ) and Rooming in feeding status: Exclusively breast feeding Narrative: Prefers to stay overnight since baby will need to be weighed tomorrow anyways due to 7% weight loss. Exam Physical Exam Vital signs: Temp Pulse Resp BP Pulse Ox 98.4 F 74 16 99/60 L 97 07/26/21 09:45 07/26/21 09:45 07/26/21 09:45 07/26/21 09:45 07/26/21 09:45 Constitutional Constitutional: no acute distress and cooperative Detailed HEENT Exam Head: Present normocephalic and atraumatic Breast Exam Bilateral: Breast Exam: Engorged Nipple Exam: Normal Respiratory Exam Respiratory Exam: Normal Abdominal Exam Abdomen: Tender (mildly) Comments: Incision clean, dry, intact Fundal Exam Fundus: Below Umbilicus and Firm Extremities Exam Extremity Exam: Edema (trace) Detailed Neurological Exam Neurological: Present alert, oriented X3 and CN II-XII intact Results Hemoglobin/Hematocrit: Hgb 10.0 g/dL (11.2-15.7) L 07/25/21 06:36 Hct 32.0 % (36.0-46.0) L 07/25/21 06:36 Abnormal Lab Findings: Abnormal Labs 07/24/21 07/25/21 03:27 06:36 RBC 3.67 L Hgb 10.0 L Hct 35.3 L 32.0 L MCHC 31.3 L RDW 16.0 H 16.8 H MPV 11.4 H 11.6 H
[2021-07-26 16:24] VITALS: BP 105/71; PULSE 88; RESP 16
--- NOTE | 2021-07-26 20:37 | DSE_ITS ---
Date of service: 07/27/21 Time of Service: 08:06 DS: Diagnosis Discharge Diagnosis (1) Status post repeat low transverse section: Status: Acute Discharge Plan Disposition Patient Disposition: HOME Condition: Good Discharge Details Reason For Visit: Rule Out Labor Admit Date/Time: 07/24/21 02:08 Admit Provider: Iris Pena Attending Provider: Iris Pena [facility] Hospital Course: Pt presented in labor at 37+wks with prior CS x2. She underwent RCS and BTL without complication. She had a routine post-op course. Home Meds and New Rx's Prescriptions: No Action multivitamin Tablet 1 tab PO DAILY RF: 0 ferrous sulfate 325 mg (65 mg iron) tablet,delayed release (DR/EC) 325 mg PO BID 180 Days Qty: 360 RF: 1 Discharge Instructions Additional Instructions: You may shower and allow water to run over the incision. Pat the incision dry afterwards. Keep area clean and dry. No lifting >20lbs until after your post-op visit in 4-6wks. Call with increasing pain, heavy bleeding or significant drainage from the incision. Breast-feeding can change as the baby grows. Don't hesitate to call for help if you have sore nipples or concerns about the baby's latch. Activity:: No lifting >20lbs Equipment/Supplies:: No Equipment Needed Diet:: As Tolerated DS: Summary Time Spent with Patient providing and/or coordinating discharge services: Less than 30 minutes Status at Discharge Functional status at discharge: independent ambulation Overall status at discharge: patient is progressing back to baseline Mental Status: mental status grossly normal Speech and Movement: speech and movement normal Mood: congruent mood Affect: normal affect Exam Const General: cooperative, healthy appearing and no acute distress [facility] Head: normocephalic and atraumatic Ears: hearing grossly normal bilaterally Resp Effort & Inspection: normal respiratory effort and able to speak in complete sentences GI Inspection: incision (clean dry intact) Palpation: soft and tender (mildly) Neuro General: patient alert and patient awake Extrem General: clubbing, cyanosis or edema noted and no calf tenderness bilaterally Psych Appearance: grossly normal Mental Status: mental status grossly normal Speech and Movement: speech and movement normal Mood: congruent mood Affect: normal affect Attitude: cooperative Thought Process: normal Thought Content: normal DS: Data Vitals/I&O Vitals and I&O: Vital Signs Temperature 98.4 F 07/26/21 09:45 Pulse 88 07/26/21 16:24 Pulse Rhythm Regular 07/26/21 09:45 Respiratory Rate 16 07/26/21 16:24 Respiratory Depth Normal 07/25/21 20:11 Blood Pressure 105/71 07/26/21 16:24 Blood Pressure Mean 82 07/26/21 16:24 Pulse Oximetry 98 07/26/21 13:29 Oxygen Delivery Method Room Air 07/24/21 02:59 Oxygen Flow Rate 0 07/24/21 02:59 Pain Level 3 07/26/21 17:45 Intake & Output 07/25/21 07/26/21 07/26/21 23:59 11:59 23:59 Intake Total 1000 / 1000 Output Total 500 / 2100 Balance -500 / -1550 1000 / 1000 Intake: IV 1000 / 1000 Output: Urine 500 / 2100 [facility] Medical History (Updated 07/27/21 @ 08:09 by Yue Jo MD) Abscess of Bartholin's gland R sided. I+D 09/20/13. + Staph Aureus. Breast tenderness Depression Eczema Gastroesophageal reflux disease Melanocytic nevi of scalp and neck (08/29/14) Migraine with aura acute exacerbation of headache sx in 08/2010 with 2hr episode of confusion and difficulty communicating followed by severe migrane. w/u with MRI showing ? white matter changes but no CVA. Rx with Maxalt and Amitriptyline. 08/24/13 recurrent sx of migrane with aura 11w EGA. Nonspecific abnormal findings on skull or head x-ray or scan 2003 MRA - neg /MRI -T2 image 8x9mm lesion R lateral ventricle. 2009 MRA [place] MRI Nonspecific white matter changes periventricular region. Possible lesion in R maninder ? demylelinating process. Surgical History (Updated 07/27/21 @ 08:12 by Yue Jo MD) Appendectomy 2011 at [facility] section (03/15/14) 03/15/14 LTCS for arrest of descent. M. 9lb2oz. Apgars 9/10. IOL at 41w. [place]. pushed for 3hrs. [place] 01/20/18 RLTCS Tyrese Mandeep. 9lb1oz. Active labor, declined . 07/23/2021: RLTCS &BTL @37+wks in early labor. [place] Family History Mother No problems noted. Father No problems noted. Sister Fibromyalgia Mental disorder Anxiety depresssion Sister Mental disorder Anxiety, Depression Asthma Brother Asthma Brother No problems noted. Social History (Updated 07/27/21 @ 08:13 by Yue Jo MD) Smoking/Tobacco Use Status: Never Smoking risk assessment performed?: Yes Drug use: Never Household members: spouse, children and other Details: H-Niko, sudhir-Mandeep Angel Number of Children: 2 current occupation: school principal. Niko [id number] Do you feel safe in your relationship?: Yes Female Reproductive History Menstrual control method: pills History History 3 Para 3 Hx # Term Pregnancies 3 Multiple births 0 Hx # Pregnancies 0 Ectopic pregnancies 0 AB induced 0 Hx Number of Living Children 3 AB spontaneous 0 Past Pregnancies Del. Date GA/Weeks # Outcome Route Wgt Sex Labor Lgth Anesthes ia Location Prov Complic 03/15/14 42 No Successful 9 lb 2 oz Male 48 hrs regional [facility] - Dr. Pena 01/20/18 38 No Successful 9 lb 1 oz Male spont l abor, planned repeat C/S once dilated to 3 cm regional [facility] - Dr. Tobin Delivery Date: 03/15/14 IOL for post dates, tried for 2 days, dilated to 9 or so, pushed anyway for 3 hrs, then C/S Carmen Parks Delivery Date: 01/20/18 Planned repeat C/S but went into labor early Carmen Burden
[2021-07-26 22:00] VITALS: BP 112/68; PULSE 80; RESP 18; TEMP 36.8; O2SAT 98
[2021-07-27] MEDS: Ibuprofen 600 MG TAB PO (06:34)
[2021-07-27 10:10] VITALS: BP 105/71; PULSE 85; RESP 18; TEMP 36.5; O2SAT 98
[2021-07-27] MEDS: Acetaminophen 325 MG TAB 650 MG PO (11:08)
[2021-07-27] MEDS: Docusate Sodium 100 MG CAP PO (11:08)
== END 2021-07-27 11:30 | disposition home or self-care (01) | DRG 784 ==
PROVIDERS: Admitting Provider Obstetrics & Gynecology Gynecology; PCP Nurse Practitioner Family; Visit Provider Obstetrics & Gynecology Gynecology
PROC: 10D00Z1 Extraction of Products of Conception, Low, Open Approach (ICD-10-PCS; CPT 59514; principal; 2021-07-24 03:30)
DX: O99.013 Anemia complicating pregnancy, third trimester (principal); O99.354 Diseases of the nervous system complicating childbirth; Z37.0 Single live birth; O34.211 Maternal care for low transverse scar from previous cesarean delivery; Z3A.37 37 weeks gestation of pregnancy; Z30.2 Encounter for sterilization; O99.824 Streptococcus B carrier state complicating childbirth; O99.344 Other mental disorders complicating childbirth; N85.8 Other specified noninflammatory disorders of uterus; O99.62 Diseases of the digestive system complicating childbirth; O99.814 Abnormal glucose complicating childbirth; F32.9 Major depressive disorder, single episode, unspecified; R73.02 Impaired glucose tolerance (oral); K21.9 Gastro-esophageal reflux disease without esophagitis; G43.109 Migraine with aura, not intractable, without status migrainosus; Z20.822 Contact with and (suspected) exposure to COVID-19
CPT/HCPCS: 59514; 58700; 36415; 85027; 86850; 86900; 86901; 87635; 85025; 88302; J0456; J0690; J1885; J2370; J2405; J2590; J3010

== ENCOUNTER 2021-09-02 10:11 | Outpatient (REF) | payer BC, SELFPAY ==
--- NOTE | 2021-09-02 | PAPFT_PTH ---
PATIENT: Ana Bond LOC: [facility] U#:[id number] AGE/SX: 36/F ROOM: RE09/02/[address]: Iris Pena : 1985 BED: DIS: 09/02/2021 SPEC #: [id number] RECD: 09/02/21 12:58 STATUS: ABHINAVKate REQ #: [id number] NOMAN: 09/02/21 00:[address]: Iris Pena DEPT: [facility] Cytology RECD BY: Nury Villanueva ENTERED: 09/10/21 18:52 SP TYPE: PAPFT OTHR DR: Medina Orantes Tissues: 1 - CX/ENDOCX FOR PAP SMEARS Procedures: PAP THIN PREP/UVM Screening HPV DNA PROBE Comments:
== END 2021-09-02 10:12 | disposition home or self-care (01) ==
LOC: LBN 10:11
PROVIDERS: PCP Nurse Practitioner Family; Visit Provider Obstetrics & Gynecology Gynecology
DX: Z12.4 Encounter for screening for malignant neoplasm of cervix (principal); Z11.51 Encounter for screening for human papillomavirus (HPV)
CPT/HCPCS: 88142; 87624

== ENCOUNTER 2022-03-10 18:23 | Outpatient (REF) | payer BC, SELFPAY ==
[2022-03-10 19:24] LABS: HCT 41.6 % (36.0-46.0); HGB 13.7 g/dL (11.2-15.7); MCH 29.7 pg (27.0-33.0); MCHC 32.9 % (32.0-36.0); MCV 90 fL (80-95); MPV 11.8 fL (8.0-11.0); Platelet Count 302 10^3/uL (130-400); RBC 4.61 10^6/uL (3.93-5.22); RDW 12.8 % (11.7-14.6); RDW-SD 41.7 fL
[2022-03-10 19:31] LABS: Iron 50 ug/dL (50-170); Total Iron Binding Capacity 350 ug/dL (250-450); Transferrin Sat 14 % (15-50)
[2022-03-10 19:48] LABS: Ferritin 30 ng/mL (8-252)
== END 2022-03-10 18:24 | disposition home or self-care (01) ==
LOC: NCHCN 18:23
PROVIDERS: PCP Nurse Practitioner Family; Visit Provider Nurse Practitioner Family
DX: Z86.2 Personal history of diseases of the blood and blood-forming organs and certain disorders involving the immune mechanism (principal)
CPT/HCPCS: 85027; 82728; 83540; 83550

== ENCOUNTER 2025-09-06 12:13 | Outpatient (REF) | payer BC, SELFPAY | END 2025-09-06 12:14 | disposition home or self-care (01) | LOC: LBN 12:13 | PROVIDERS: Visit Provider Nurse Practitioner Family | DX: J02.9 Acute pharyngitis, unspecified (principal) | CPT/HCPCS: 87070 ==